=== PATIENT | male | born 1950 | race Caucasian/White ===

== ENCOUNTER → 2016-11-10 | Outpatient (CLI) | payer OTHER, MEDICARE | LOC: BHLMT 09:30 | PROVIDERS: ATTEND Internal Medicine Cardiovascular Disease | DX: R01.1 Cardiac murmur, unspecified (principal); I71.9 Aortic aneurysm of unspecified site, without rupture | CPT/HCPCS: 93306-PO ==

== ENCOUNTER → 2017-02-07 | Outpatient (CLI) | payer OTHER, MEDICARE ==
[~2017-02-07] MED LIST: IOPAMIDOL (ISOVUE-300) 100 ML BTL ONE
[2017-02-07 07:36] LABS: GLOMERULAR FILTRATION RATE > 60
== END ==
LOC: FIMAGING 06:37
PROVIDERS: ATTEND Internal Medicine
DX: N28.1 Cyst of kidney, acquired (principal); I70.0 Atherosclerosis of aorta; R93.2 Abnormal findings on diagnostic imaging of liver and biliary tract; K57.30 Diverticulosis of large intestine without perforation or abscess without bleeding
CPT/HCPCS: 74177; Q9967

== ENCOUNTER → 2017-11-10 | Outpatient (CLI) | payer OTHER, MEDICARE | LOC: BHLMT 14:00 | PROVIDERS: ATTEND Internal Medicine Interventional Cardiology | DX: R01.1 Cardiac murmur, unspecified (principal); I71.9 Aortic aneurysm of unspecified site, without rupture | CPT/HCPCS: 93306-PO ==

== ENCOUNTER → 2018-11-13 | Outpatient (CLI) | payer OTHER, MEDICARE | LOC: BHLMT 08:30 | PROVIDERS: ATTEND Internal Medicine Cardiovascular Disease | DX: R01.1 Cardiac murmur, unspecified (principal); G47.33 Obstructive sleep apnea (adult) (pediatric); I71.9 Aortic aneurysm of unspecified site, without rupture | CPT/HCPCS: 93306-PO ==